=== PATIENT | female | born 1965 | race African-American/Black ===

== ENCOUNTER 2017-02-26 07:33 | Inpatient (IN) | payer OTHER ==
--- NOTE | 2017-02-25 11:55 | HP ---
Satellite [facility] - Chief Complaint Chief Complaint: right knee pain - Past Medical History Allergies/Adverse Reactions: Allergies Allergy/AdvReac Type Severity Reaction Status Date / Time No Known Drug Allergies Allergy Verified 12/18/16 13:42 - Current Medications Current Medications: Home Medications Medication Instructions Recorded Albuterol Sulfate Inhaler - 1 puff IH ASDIR PRN 12/18/16 [Ventolin Hfa Inhaler -] Budesonide/Formeterol Fumarate 1 inh PO DAILY 12/18/16 [SYMBICORT 80/4.5mcg -] Hydralazine HCl [Apresoline -] 25 mg PO DAILY 12/18/16 Hydrochlorothiazide [Hctz -] 12.5 mg PO DAILY 12/18/16 Naproxen [Naprosyn -] 250 mg PO ASDIR PRN 12/18/16 Satellite Physical Exam - Physical Examination General Appearance: Well Nourished, Well Developed, Alert & Oriented x3 ENT: Clear Lung: Normal air movement Heart: Regular rate & rhythm Extremities: Other (right knee- + swelling, + ttp , decr rom nvi xrays show tricompartmental djd) Neurological: Intact, Alert, Oriented Satellite Impression/Plan - Impression/Plan Impression: right knee djd Operative Procedure: right sam tkr Date to be Performed: 02/26/17
[2017-02-26] MEDS ORDERED: GABAPENTIN 300 MG CAPSULE (FP) PO ONE ×2 (08:09→08:37)
[2017-02-26] MEDS ORDERED: oxyCODONE HCL 10 MG SUSTAINED ACTING TABLET PO ONE ×2 (08:09→08:37)
[2017-02-26] MEDS ORDERED: CEFAZOLIN 2 GM in DEXTROSE 5%-WATER - 50 ML IVPB ONE (08:09)
[2017-02-26] MEDS ORDERED: TRANEXAMIC ACID 1000 MG/10 ML VIAL IVPUSH ONE (08:09)
[2017-02-26] MEDS ORDERED: CELECOXIB 200 MG CAPSULE PO ONE ×2 (08:37→10:00)
[2017-02-26] MEDS ORDERED: MIDAZOLAM HCL 2 MG/2 ML SINGLE DOSE VIAL ONE ×2 (09:08→11:01)
[2017-02-26] MEDS ORDERED: DEXAMETHASONE SOD PHOSPHATE/PF 10 MG/ML SDV ONE (09:08)
[2017-02-26] MEDS ORDERED: BUPIVACAINE HCL/PF 2.5 MG/ML - 30 ML VIAL IJ ONE (09:09)
[2017-02-26 09:26] VITALS: BMI 32.5
[2017-02-26] MEDS ORDERED: BUPIVACAINE HCL/PF 0.5% (5MG/ML) 10 ML VIAL ONE (10:07)
[2017-02-26] MEDS ORDERED: VANCOMYCIN 1 GRAM (PRE-DOCKED) 1,000 MG/250 ML BAG IVPB ONE (10:08)
[2017-02-26] MEDS ORDERED: PROPOFOL 20 ML ONE ×2 (10:42)
[2017-02-26] MEDS ORDERED: ceFAZolin SODIUM 1 GM VIAL ONE (10:43)
[2017-02-26] MEDS ORDERED: TRANEXAMIC ACID 1000 MG/10 ML VIAL ONE ×2 (10:43→11:57)
[2017-02-26] MEDS ORDERED: ONDANSETRON 4 MG/2 ML VIAL ONE ×2 (10:43→11:57)
[2017-02-26] MEDS ORDERED: hydrALAZINE HCL 20 MG/ML VIAL ONE (12:05)
[2017-02-26] MEDS ORDERED: ONDANSETRON 4 MG/2 ML VIAL IVPB PRN (12:21)
[2017-02-26] MEDS ORDERED: MAG HYDROX/AL HYDROX/SIMETH 30 ML UNIT-DOSE CUP PO PRN (12:21)
[2017-02-26] MEDS ORDERED: ALBUTEROL SO4 6.7 GM HFA INHALER IH PRN (12:21)
[2017-02-26] MEDS ORDERED: MAGNESIUM HYDROX 2400MG/30ML ORAL SUSPENSION 30 ML CUP PO PRN (12:21)
--- NOTE | 2017-02-26 12:24 | OP ---
Operative Note - Note: Operative Date: 02/26/17 (karo) Pre-Operative Diagnosis: right knee djd Operation: right sam tkr Post-Operative Diagnosis: Same as Pre-op Surgeon: Adrian Holland Linotype Worker: Hermann Blackwell Anesthesiologist/WORKDAY MANAGER: Galilea Blanco Anesthesia: Spinal, Local Specimens Removed: bone fragments Estimated Blood Loss (mls): 50 (tourniquet) Operative Report Dictated: Yes
[2017-02-26] MEDS ORDERED: ELECTROLYTE-148 SOLN 1,000 ML IV SCH ×2 (12:30→13:00)
[2017-02-26] MEDS ORDERED: ACETAMINOPHEN 1000 MG/100 ML VIAL (NON FORMULARY) IVPB ONE (12:56)
[2017-02-26] MEDS ORDERED: ONDANSETRON 4 MG/2 ML VIAL IVPUSH PRN (12:56)
[2017-02-26] MEDS ORDERED: oxyCODONE HCL 5 MG TABLET PO PRN (12:56)
--- NOTE | 2017-02-26 14:08 | SPEC ---
DATE OF OPERATION: 02/26/2017 OPERATION: Left total knee replacement with robotic-assisted navigation (MAKOplasty). PREOPERATIVE DIAGNOSIS: Degenerative joint disease, left knee. POSTOPERATIVE DIAGNOSIS: Degenerative joint disease, left knee. SURGEON: Adrian Holland M.D. TELEVISION PRODUCTION TECHNICIAN: Wilbur Kelley ANESTHESIA: Regional and spinal. CLOSURE: A Triathlon knee system cemented with a 3 femur, a 4 tibia, an 11 PS polyethylene, and a 32 patella. A number 1 Vicryl fascia, 0 and 2-0 for subcutaneous, 3-0 Monocryl subcuticular with skin glue for skin, 4-0 undyed Vicryl for pin sites. ESTIMATED BLOOD LOSS: Negligible. TOURNIQUET TIME: Approximately 75 minutes. COMPLICATIONS: None CONDITION: To recovery room in stable condition. DESCRIPTION OF PROCEDURE: Patient was taken to the operating room on February 26, 2017. Regional and spinal anesthesia were administered by the anesthesiologist. IV antibiotics and TXA were administered prophylactically prior to the case. A well-padded pneumatic tourniquet was placed on the left proximal thigh. The left lower extremity was prepped and draped in the usual sterile fashion. An approximately 12-cm midline incision centered over the patella was incised. Hemostasis was achieved with Bovie cautery. Sharp dissection was carried down to the level of the extensor mechanism the procedure. The medial parapatellar arthrotomy was then performed. The patella was inverted and the knee was flexed up to 90 degrees. Subperiosteal dissection was performed on the anteromedial proximal tibia until the knee was able to be brought forward. This was facilitated by taking the ACL, the PCL, and the medial and lateral menisci. A checkpoint was malleted into the medial femoral condyle and into the anteromedial proximal tibia. Through two small stab incisions in the mid femur and two in the mid tibia, two bicortical pins were drilled, achieving excellent height. Two of these pins were attached to the navigation arrays. The knee was then registered with the navigation device by rotating the hip to ascertain the center of rotation of the hip with points on both the medial and lateral malleoli and multiple points on both the femur and on the tibia. Excellent registration was confirmed by "popping the bubbles". At this time, the osteophytes on the edges of the proximal tibia both medially and laterally, as well as on the medial lateral femoral condyles underneath the collateral ligaments were debrided. The knee was stressed in extension and in flexion to confirm good gaps. The virtual positions of the components were then optimized in order to have a balanced knee, both in extension and in 90 degrees of flexion. The sizes of the components were also optimized to get good coverage over both the tibia and the femur and to produce equal gaps in extension and flexion with the appropriate amount of external rotation of the femur, the appropriate amount of flexion of the femoral component and the appropriate slope on the tibial component. At this time, the robot was brought into the field and registered. The robot was used to cut the proximal tibia and to make all the cuts on the distal femur. The bone was then removed. A spacer block in extension and flexion was used to confirm equal balancing of the component in both extension and 90 degrees of flexion. The box for the posterior cruciate sacrificing component was then performed and a trial component on the femur and tibia was applied. The femoral component was clipped into place with the appropriate external rotation. This was confirmed by the navigation device, ensuring the appropriate position of the tibial component on the proximal tibia. The patella was calipered for thickness and osteotomized at the appropriate level. A lollipop was used to drill the three lugholes in the patella and then a trial component was applied. The knee was taken through a range of motion and found to have excellent tracking of the patella from full extension to full flexion, with good stability, varus/valgus throughout range of motion. The trial components were then removed. Before removing the tibial tray, the keyhole was made. The knee was then thoroughly irrigated with antibiotic irrigation. The real components were then cemented in, using modern generation cement techniques with antibiotic cement and pressurization. After the cement was hardened, the knee was thoroughly inspected to remove all excess cement. The real polyethylene component was then clipped into place. Again, range of motion, stability and tracking were found to be excellent throughout. The knee was then pulse antibiotic irrigated and dried. Vancomycin powder was placed into the knee. The checkpoints were removed. The medial parapatellar arthrotomy was then closed using number 1 Vicryl interrupted suture. The knee was again taken through range of motion and found to have no undue tension on the repair and good tracking throughout. The subcutaneous was closed with 0 and 2-0 Vicryl and 3-0 Monocryl subcuticular for skin with skin glue. The pins were removed in the femur and the tibia and pulse antibiotic irrigated and closed with 4-0 undyed Vicryl. Sterile Aquacel dressing followed by a Brooks dressing was applied. The tourniquet was then deflated. One more dose of TXA was administered at the end of the case. The patient was awakened from anesthesia and transferred to the recovery room in stable condition. X-rays revealed good position of the components. There were no complications. Estimated blood loss was negligible. Total tourniquet time was approximately 75 minutes. Semaj [id number]
[2017-02-26 14:57] LABS: HIV 1 & 2 AB NEGATIVE; HIV 1 AGp24 NEGATIVE
[2017-02-26] MEDS: oxyCODONE HCL 5 MG TABLET PO PRN (16:27)
[2017-02-26] MEDS: CEFAZOLIN 2 GM/D5W 50 ML IVPB SCH (17:53)
[2017-02-26] MEDS: GABAPENTIN 300 MG CAPSULE (FP) PO SCH (21:08)
[2017-02-26] MEDS: SENNOSIDES/DOCUSATE COMBO (SENNA PLUS) TABLET (UD) PO SCH (21:08)
[2017-02-26] MEDS: oxyCODONE HCL 10 MG SUSTAINED ACTING TABLET PO SCH (21:09)
[2017-02-27] MEDS: oxyCODONE HCL 5 MG TABLET PO PRN ×4 (01:17→19:36)
[2017-02-27] MEDS: CEFAZOLIN 2 GM/D5W 50 ML IVPB SCH (01:18)
--- NOTE | 2017-02-27 08:04 | PN ---
Progress Note (short form) - Note Progress Note: Ortho Pt seen and examined s/p right sam tkr pod #1 Selected Entries 02/27/17 06:00 Temperature 98.4 F Pulse Rate 70 Respiratory 18 Rate Blood Pressure 150/72 Laboratory Tests 02/27/17 07:00 WBC Pending Hgb Pending Hct Pending Plt Count Pending dressing c/d/i, calf soft, nt rom 0-40, nvi a/p PT dvt ppx pain control d/c home tomorrow if stable
[2017-02-27 08:10] LABS: MCH 30.1 pg (25.7-33.7); MCHC 35.8 g/dl (32.0-36.0); MEAN CELL VOLUME 84.1 fl (80-96); MEAN PLT VOLUME 9.2 fl (7.5-11.1); PLATELET COUNT 227 K/MM3 (134-434)
[2017-02-27] MEDS: ASPIRIN 325 MG TABLET PO SCH (08:15)
[2017-02-27] MEDS: HYDROCHLOROTHIAZIDE 12.5 MG CAPSULE (FP) PO SCH (09:59)
[2017-02-27] MEDS: SENNOSIDES/DOCUSATE COMBO (SENNA PLUS) TABLET (UD) PO SCH ×2 (09:59→21:47)
[2017-02-27] MEDS: GABAPENTIN 300 MG CAPSULE (FP) PO SCH ×2 (10:00→21:47)
[2017-02-27] MEDS: PANTOPRAZOLE 40 MG TABLET (FP) PO SCH (10:00)
[2017-02-27] MEDS: MULTIVITAMINS (DAILY MVI) TABLET (FP) PO SCH (10:00)
[2017-02-27] MEDS: oxyCODONE HCL 10 MG SUSTAINED ACTING TABLET PO SCH ×2 (10:00→21:47)
[2017-02-27] MEDS: BUDESONIDE/FORMETEROL FUMARATE 80/4.5 mcg INHALER IH SCH (10:01)
--- NOTE | 2017-02-27 10:50 | PN ---
Progress Note, Physician Chief Complaint: Pt. pain controlled, ambulating and voiding, no anesthesia complaints. - Current Medication List Current Medications: Active Medications Al Hydroxide/Mg Hydroxide (Mylanta Oral Suspension -) 30 ml PO Q4H PRN PRN Reason: DYSPEPSIA Albuterol Sulfate (Ventolin Hfa Inhaler -) 1 puff IH Q4H PRN PRN Reason: SHORT OF BREATH/WHEEZING Aspirin (Asa -) 325 mg PO DAILY@0800 [facility] Last Admin: 02/27/17 08:15 Dose: 325 mg Budesonide/Formoterol Fumarate (Symbicort 80/4.5mcg -) 1 puff IH DAILY [facility] Last Admin: 02/27/17 10:01 Dose: 1 puff Fentanyl (Sublimaze Injection -) 50 mcg IVPUSH [id number] PRN PRN Reason: PAIN Stop: 03/01/17 12:57 Gabapentin (Neurontin -) 300 mg PO BID [facility] Last Admin: 02/27/17 10:00 Dose: 300 mg Hydrochlorothiazide (Hctz -) 12.5 mg PO DAILY [facility] Last Admin: 02/27/17 09:59 Dose: 12.5 mg Parenteral Electrolytes (Plasma-Lyte 148 -) 1,000 mls @ 75 mls/hr IV ASDIR [facility] Magnesium Hydroxide (Milk Of Magnesia -) 30 ml PO PRN PRN PRN Reason: CONSTIPATION Multivitamins/Minerals/Vitamin C (Tab-A-Vit -) 1 tab PO DAILY [facility] Last Admin: 02/27/17 10:00 Dose: 1 tab Ondansetron HCl (Zofran Injection) 4 mg IVPB Q6H PRN PRN Reason: NAUSEA Oxycodone HCl (Oxycontin -) 10 mg PO BID [facility] Stop: 03/01/17 12:56 Last Admin: 02/27/17 10:00 Dose: 10 mg Oxycodone HCl (Roxicodone -) 5 mg PO Q3H PRN PRN Reason: PAIN LEVEL 1-5 Oxycodone HCl (Roxicodone -) 10 mg PO Q3H PRN PRN Reason: PAIN LEVEL 6-10 Last Admin: 02/27/17 07:05 Dose: 10 mg Pantoprazole Sodium (Protonix -) 40 mg PO DAILY [facility] Last Admin: 02/27/17 10:00 Dose: 40 mg Senna/Docusate Sodium (Pericolace -) 2 tablet PO BID [facility] Last Admin: 02/27/17 09:59 Dose: 2 tablet - Objective Vital Signs: Vital Signs Temperature 98.4 F 02/27/17 06:00 Pulse Rate 70 02/27/17 06:00 Respiratory Rate 18 02/27/17 08:34 Blood Pressure 150/72 02/27/17 06:00 O2 Sat by Pulse Oximetry (%) 97 02/27/17 08:34 Constitutional: Yes: Well Nourished, No Distress, Calm Musculoskeletal: Yes: WNL Neurological: Yes: WNL, Alert, Oriented ...Motor Strength: WNL Labs: CBC, BMP 02/27/17 07:00 Assessment/Plan POD#1 s/p Right total knee replacement under spinal. Doing well. D/C from anesthesia care.
[2017-02-28] MEDS: oxyCODONE HCL 5 MG TABLET PO PRN (04:38)
[2017-02-28] MEDS ORDERED: ACETAMINOPHEN 325 MG TABLET (FP) PO ONE (04:50)
[2017-02-28 06:54] VITALS: BP 149/72; PULSE 88; TEMP 99.5
[2017-02-28] MEDS: ASPIRIN 325 MG TABLET PO SCH (08:01)
--- NOTE | 2017-02-28 08:31 | PN ---
Progress Note (short form) - Note Progress Note: Ortho Pt seen and examined s/p right sam tkr pod #2 Selected Entries 02/28/17 06:47 Temperature 99.5 F Pulse Rate 88 Respiratory 18 Rate Blood Pressure 149/72 Laboratory Tests 02/27/17 07:00 WBC 11.0 H Hgb 12.5 Hct 34.8 Plt Count 227 dressing c/d/i, calf soft, nt rom 0-40, nvi a/p PT dvt ppx pain control d/c home today f/u in 1 week
--- NOTE | 2017-02-28 08:32 | DS ---
Physical Examination Vital Signs: Vital Signs Temperature 99.5 F 02/28/17 06:47 Pulse Rate 88 02/28/17 06:47 Respiratory Rate 18 02/28/17 06:47 Blood Pressure 149/72 02/28/17 06:47 O2 Sat by Pulse Oximetry (%) 94 L 02/28/17 06:47 Discharge Summary Reason For Visit: OSTEOARTHRITIS Procedures: Principal: s/p right sam tkr Hospital Course: admitted for elective right sam tkr, uneventful post-op, stable for d/c Condition: Good - Instructions Diet, Activity, Other Instructions: Post-op Instructions-Total Knee Replacement Call the office for a follow-up appointment in 1 week - [phone] Aspirin 325mg daily for 6 weeks. Pain medication was sent into your pharmacy. Apply Graduated Compression Stockings (TEDs) to both lower extremities- remove daily for hygiene ONLY Apply Sequential Compression Device (SCDs) to both Lower extremities remove for PT and hygiene ONLY Apply cold packs to affected area for 15 minutes every 2 hours. Physical Therapist will come to your home for the first 5 days. You will be set up with outpatient PT at your first post-operative visit. Patient may ambulate as tolerated-encourage self care (at least every 2-3 hours while awake) with walker or cane Maintain Aquacel (waterproof) dressing to operative wound (will be removed by surgeon at first office visit) Shower with Aquacel dressing in place-if Aquacel integrity compromised, remove and apply dry sterile dressing and notify Orthopedist. DO NOT SHOWER unless Orthopedists approves without Aquacel dressing CONTACT THE OFFICE FOR ANY CHANGE IN YOUR CONDITION (for example-fever greater than 102 degrees,excessive bleeding from operative site, purulent drainage, severe swelling or pain) GO TO THE EMERGENCY ROOM IF THERE IS A MEDICAL EMERGENCY Knee Precautions: * Keep a rolled towel under affected heel while in bed or chair (to keep knee in extension) * Keep affected leg elevated except during mealtimes * DO NOT PLACE PILLOW UNDER AFFECTED KNEE * If you have any questions, please do not hesitate to call the office - . Referrals: Adrian Holland MD [Staff Physician] - Disposition: VNS/HOME HEALTH CARE - Home Medications Comprehensive Discharge Medication List: Ambulatory Orders Albuterol Sulfate Inhaler - [Ventolin HFA Inhaler -] 1 puff IH ASDIR PRN Budesonide/Formeterol Fumarate [SYMBICORT 80/4.5mcg -] 1 inh PO DAILY 12/18/16 Hydrochlorothiazide [Hctz -] 12.5 mg PO DAILY 12/18/16 Aspirin [ASA -] 325 mg PO DAILY@0800 tablet 02/26/17 Ibuprofen [Advil -] 200 mg PO HS 02/26/17 Oxycodone HCl/Acetaminophen [Percocet 5-325 mg Tablet -] 1 - 2 tab PO Q6H #50 tab MDD 8 02/26/17
[2017-02-28 09:32] LABS: MCH 30.1 pg (25.7-33.7); MCHC 34.9 g/dl (32.0-36.0); MEAN CELL VOLUME 86.1 fl (80-96); MEAN PLT VOLUME 9.6 fl (7.5-11.1); PLATELET COUNT 206 K/MM3 (134-434); RDW 13.6 % (11.6-15.6); WHITE BLOOD COUNT 8.9 K/mm3 (4.0-10.0)
[2017-02-28] MEDS: GABAPENTIN 300 MG CAPSULE (FP) PO SCH (09:43)
[2017-02-28] MEDS: HYDROCHLOROTHIAZIDE 12.5 MG CAPSULE (FP) PO SCH (09:43)
[2017-02-28] MEDS: oxyCODONE HCL 10 MG SUSTAINED ACTING TABLET PO SCH (09:43)
[2017-02-28] MEDS: PANTOPRAZOLE 40 MG TABLET (FP) PO SCH (09:44)
[2017-02-28] MEDS: BUDESONIDE/FORMETEROL FUMARATE 80/4.5 mcg INHALER IH SCH (09:44)
[2017-02-28] MEDS: SENNOSIDES/DOCUSATE COMBO (SENNA PLUS) TABLET (UD) PO SCH (09:44)
[2017-02-28] MEDS: MULTIVITAMINS (DAILY MVI) TABLET (FP) PO SCH (09:45)
--- NOTE | 2017-03-04 10:55 | PATH ---
Surgical Pathology Report Patient Name: CAT DANIEL Med. Rec. #: [id number] /Age/Gender: 1965 (Age: 52) / F Account: [id number] Location: [facility] MED-SURG Taken: 02/26/2017 Received: 02/27/2017 Reported: 03/04/2017 Physicians: Adrian Holland M.D. Specimen(s) Received RIGHT KNEE BONE AND TISSUE Clinical History Osteoarthritis right knee Final Diagnosis KNEE TISSUE AND BONE, RIGHT, TOTAL KNEE REPLACEMENT: DEGENERATIVE JOINT DISEASE. Electronically Signed Jory Loomis M.D. Gross Description Received in formalin labeled "right knee bone and tissue," is an 11.5 x 10.0 x 2.0 cm aggregate of multiple vincent-yellow, irregular portions of bone and soft tissue. The tibial plateau measures 7.5 x 5.1 x 1.5 cm. There is a 2.5 cm greatest dimension area of eburnation present. The remaining articular surfaces are vincent-yellow and diffusely granular. The underlying trabecular bone is yellow and hard. [employer] Program[employer] sections are submitted in one cassette, following decalcification. 02/28/201702/28/2017
== END 2017-02-28 14:05 | disposition home health service (06) | DRG 470 ==
LOC: FM/S 07:33
PROVIDERS: ADMIT Orthopaedic Surgery; ATTEND Orthopaedic Surgery
PROC: 8E0Y0CZ Robotic Assisted Procedure of Lower Extremity, Open Approach (ICD-10-PCS; 2017-02-26)
PROC: 0SRC0J9 Replacement of Right Knee Joint with Synthetic Substitute, Cemented, Open Approach (ICD-10-PCS; principal; 2017-02-26 10:08)
DX: M17.11 Unilateral primary osteoarthritis, right knee (principal); I10 Essential (primary) hypertension; E66.8 Other obesity; Z68.32 Body mass index [BMI] 32.0-32.9, adult
CPT/HCPCS: 36415; 73560-TC-RT; 85027; 87389; 88304-TC; 88311-TC; 94010; 94760; 97116-GP; 97162-GP

== ENCOUNTER 2020-05-27 11:56 | Emergency (ER) | payer BC, OTHER ==
[2020-05-27 12:36] VITALS: BP 157/92; PULSE 71; TEMP 97.2; BMI 29.5
== END 2020-05-27 15:15 | disposition home or self-care (01) ==
LOC: JERFT 11:56
DX: M25.562 Pain in left knee (principal)
CPT/HCPCS: 73562-TC-LT-FY; 99284-25